=== PATIENT | female | born 1965 | race Caucasian/White ===

== ENCOUNTER 2021-11-16 21:15 | Emergency (ER) | payer MEDICARE ==
[2021-11-16] MEDS ORDERED: Ativan 2 MG/1 ML VIAL ONE (21:44)
[2021-11-16] MEDS: Ativan 2 MG/1 ML VIAL IV ONE (21:45)
--- NOTE | 2021-11-16 21:48 | ERPHSYRPT ---
- History of Present Illness Time Seen by Provider: 11/16/21 21:35 Source: patient, family Exam Limitations: no limitations Patient Subjective Stated Complaint: Patient states she woke up from her sleep without any SOB to use the restroom. She states she suddenly became SOB after having a bowel movement. SOB started approx 6 hours prior to coming into ED. Denies any pain. Triage Nursing Assessment: Patient brought back into ED via wheelchair. She is alert and oriented and answering questions appropriately. Patient is visibly anxious and immediately asked for anxiety medications before getting her out of the w/c and into the bed. Patient was able to transfer self from chair to bed without difficulties. Patient instructed to focus on her breathing and take slow, deep breaths. No cough noted. Lungs in upper lobes clear. Physician History: This is a morbidly obese 56-year-old white female who has a history of hy pertension, degenerative disc disease in her back, left knee arthritis and hypothyroidism who stopped her hydrochlorothiazide on her own and is not on any other medications and has known history of anxiety. She woke up from a nap approximately 6-1/2 hours ago and was not short of breath. However she went into the restroom, had a bowel movement in the short this of breath began approximately 6 hours ago. She denies chest pain. She has no headache. She has not had a fever. She denies cough. She has no abdominal pain. Patient continues to smoke daily. Upon entrance into the emergency department she has a blood pressure 136/92, she is extremely anxious, and her room air oxygen level is running 98 to 100%. Activities at Onset: none Severity of Dyspnea-Max: moderate Severity of Dyspnea-Current: moderate Possible Cause: no prior episodes Modifying Factors: Improves With: nothing Associated Symptoms: denies symptoms Allergies/Adverse Reactions: amoxicillin Allergy (Verified 11/16/21 21:17) aspirin Allergy (Verified 11/16/21 21:18) Influenza Virus Vaccines Allergy (Verified 11/16/21 21:43) oseltamivir [From Tamiflu] Allergy (Verified 11/16/21 21:18) pneumococcal vaccine [From Pneumovax-23] Allergy (Verified 11/16/21 21:44) Home Medications: Duloxetine HCl [Cymbalta] 1 cap PO DAILY 11/16/21 [History] Hydrocodone/Acetaminophen [Hydrocodone-Acetamin 10-325 mg] 1 tab PO Q4-6HPRN PRN 11/16/21 [History] Levothyroxine Sodium 1 tab PO DAILY 11/16/21 [History] Hx Tetanus, Diphtheria Vaccination/Date Given: No Hx Influenza Vaccination/Date Given: No (Allergy) Hx Pneumococcal Vaccination/Date Given: No (Allergy) Immunizations Up to Date: No Travel Risk - International Travel Have you traveled outside of the country in past 3 weeks: No - Coronavirus Screening Are you exhibiting any of the following symptoms?: Yes Symptoms: Shortness of Breath Close contact with a COVID-19 positive Pt in past 14-21 Days: No - Vaccine Status Have you recieved a Covid-19 vaccination: Yes 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 - Vaccination Dates Date of 2cond Vaccination (if applicable): July 2021 - Review of Systems Constitutional: No Symptoms Eyes: No Symptoms Ears, Nose, & Throat: No Symptoms Respiratory: Dyspnea Cardiac: No Symptoms Abdominal/Gastrointestinal: No Symptoms Genitourinary Symptoms: No Symptoms Musculoskeletal: No Symptoms Skin: No Symptoms Neurological: No Symptoms Psychological: No Symptoms Endocrine: No Symptoms Hematologic/Lymphatic: No Symptoms Immunological/Allergic: No Symptoms All Other Systems: Reviewed and Negative - Past Medical History Pertinent Past Medical History: Yes Neurological History: No Pertinent History ENT History: No Pertinent History Cardiac History: Hypertension Respiratory History: No Pertinent History Endocrine Medical History: Hypothyroidism Musculoskeletal History: Other GI Medical History: No Pertinent History History: No Pertinent History Psycho-Social History: Anxiety, Depression Female Reproductive Disorders: No Pertinent History Other Medical History: 2 herniated discs in her back (L3, L4), peripheral neuropathy without DM - Past Surgical History Past Surgical History: Yes Musculoskeletal: Other Other Surgical History: Right leg surgery - Social History Smoking Status: Current every day smoker How long have you smoked: 8 years Exposure to second hand smoke: No Drug Use: none Patient Lives Alone: No - Nursing Vital Signs Nursing Vital Signs: Initial Vital Signs Temperature 97.9 F 11/16/21 21:19 Pulse Rate 85 11/16/21 21:19 Respiratory Rate 26 H 11/16/21 21:19 Blood Pressure 156/92 11/16/21 21:19 O2 Sat by Pulse Oximetry 99 11/16/21 21:19 Pain Scale Pain Intensity 0 - Physical Exam General Appearance: mild distress, alert, anxiety, obese Eye Exam: PERRL/EOMI, eyes nml inspection Ears, Nose, Throat Exam: hearing grossly normal, normal ENT inspection, normal pharynx Neck Exam: normal inspection, non-tender, supple, full range of motion Respiratory Exam: normal breath sounds, lungs clear, airway intact, No chest tenderness, No respiratory distress Cardiovascular/Chest Exam: normal heart sounds, regular rate/rhythm, normal peripheral pulses Abdominal/Gastrointestinal Exam: soft, normal bowel sounds, No tenderness Rectal Exam: not done Extremity Exam: non-tender, normal range of motion, normal inspection, normal capillary refill, no calf tenderness, no pedal edema, pelvis stable, No calf tenderness Neurologic Exam: alert, oriented x 3, cooperative, cafe aide II-XII nml as tested, normal mood/affect, nml cerebellar function, nml station & gait, sensation nml Skin Exam: normal color, warm, dry Lymphatic Exam: No adenopathy SpO2 Interpretation: normal SpO2: 99 O2 Delivery: Room Air - Course Nursing assessment & vital signs reviewed: Yes EKG Interpreted by Me: RATE (81), Sinus Rhythm, NORMAL AXIS, prolonged QT interval, NORMAL QRS, Other (No acute ischemic changes on today's EKG. 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 Care 11/16/21 21:41 Active Clean Catch Urine Specimen STAT Care 11/16/21 21:40 Active EKG-ER Only STAT Care 11/16/21 21:40 Active IV Insertion STAT Care 11/16/21 21:43 Active POCT Glucose Check STAT Care 11/16/21 22:13 Active Pulse Oximetry (ED) STAT Care 11/16/21 21:40 Active CHEST 1 VIEW (PORTABLE) Stat Exams 11/16/21 21:41 Taken CBC W DIFF Stat Lab 11/16/21 21:20 Completed CMP Stat Lab 11/16/21 21:20 Completed D-DIMER QUANTITATIVE Stat Lab 11/16/21 21:20 Completed Lactic Acid Stat Lab 11/16/21 21:55 Completed Lactic Acid Stat Lab 11/17/21 00:01 Completed NT PRO BNP Stat Lab 11/16/21 21:20 Completed POCT GLUCOSE Stat Lab 11/16/21 21:41 Completed T4 (Thyroxine) Stat Lab 11/16/21 21:20 Completed TROPONIN Q3H Lab 11/16/21 21:20 Completed TSH, 3RD Generation Stat Lab 11/16/21 21:20 Completed UA W/RFX CULTURE Stat Lab 11/16/21 22:14 Completed Urine Triage Profile Stat Lab 11/16/21 22:10 Completed Medication Summary Discontinued Medications Generic Name Dose Route Start Last Admin Trade Name Kenroy PRN Reason Stop Dose Admin Sodium Chloride 1,000 mls @ 999 mls/hr 11/16/21 22:21 11/17/21 00:02 Sodium Chloride 0.9% 1000 Ml IV 11/16/21 23:21 Infused .Q1H1M STA Infusion Sodium Chloride Confirm 11/16/21 22:24 Sodium Chloride 0.9% 1000 Ml Administered 11/16/21 22:25 Dose 1,000 mls @ ud .ROUTE .STK-MED ONE Lorazepam 1 mg 11/16/21 21:40 11/16/21 21:45 Lorazepam 2 Mg/1 Ml 2 Mg Vial IV 11/16/21 21:41 1 mg STAT ONE Administration Lorazepam Confirm 11/16/21 21:44 Lorazepam 2 Mg/1 Ml 2 Mg Vial Administered 11/16/21 21:45 Dose 2 mg .ROUTE .STK-MED ONE Lab/Rad Data: Laboratory Result Diagrams 11/16/21 21:20 11/16/21 21:20 Laboratory Results 11/17/21 11/16/21 11/16/21 Range/Units 00:01 22:14 22:10 WBC (4.0-10.5) x10^3/uL RBC (4.1-5.4) x10^6/uL Hgb (12.0-16.0) g/dL Hct (35-47) % MCV (78-100) fL MCH (26-32) pg MCHC (32-36) g/dL RDW (11.5-14.0) % Plt Count (150-450) x10^3/uL MPV (7.5-11.0) fL Gran % (36.0-66.0) % Immature Gran % (Auto) (0.00-0.1) % Nucleat RBC Rel Count (0.00-0.1) % Eos # (Auto) (0-0.5) x10^3/uL Immature Gran # (Auto) (0.00-0.01) x10^3u/L Absolute Lymphs (auto) (1.0-4.6) x10^3/uL Absolute Monos (auto) (0.0-1.3) x10^3/uL Absolute Nucleated RBC (0.00-0.01) x10^3u/L Lymphocytes % (24.0-44.0) % Monocytes % (0.0-12.0) % Eosinophils % (0.00-5.0) % Basophils % (0.0-0.4) % Absolute Granulocytes (1.4-6.9) x10^3/uL Basophils # (0-0.4) x10^3/uL D-Dimer (0.0-0.50) ng/mL Sodium (137-145) mmol/L Potassium (3.5-5.1) mmol/L Chloride (98-107) mmol/L Carbon Dioxide (22-30) mmol/L Anion Gap (5-15) MEQ/L BUN (7-17) mg/dL Creatinine (0.52-1.04) mg/dL Estimated GFR ML/MIN Glucose (74-106) mg/dL POC Glucometer (74 to 106) mg/dL Lactic Acid 1.0 (0.4-2.0) Calcium (8.4-10.2) mg/dL Total Bilirubin (0.2-1.3) mg/dL AST (14-36) U/L ALT (0-35) U/L Alkaline Phosphatase (38-126) U/L Troponin I (0.000-0.034) ng/mL NT-Pro-B Natriuret Pep (0-900) pg/mL Serum Total Protein (6.3-8.2) g/dL Albumin (3.5-5.0) g/dL Thyroxine (T4) (5.53-10.96) ug/dL TSH 3rd Generation (0.47-4.68) mIU/L Urinalys Dipstick Clnc MAIN LAB Urine Color YELLOW (YELLOW) Urine Appearance CLEAR (CLEAR) Urine pH 8.5 (5-6) Ur Specific [place] 1.020 (1.005-1.025) POC Urine Protein Conf NEGATIVE (Negative) Urine Ketones NEGATIVE (NEGATIVE) Urine Nitrite NEGATIVE (NEGATIVE) Urine Bilirubin NEGATIVE (NEGATIVE) Urine Urobilinogen 0.2 (0-1) mg/dL Urine Leukocytes NEGATIVE (NEGATIVE) Urine WBC (Auto) NONE (0-5) /HPF Urine RBC (Auto) 0-2 (0-2) /HPF U Epithel Cells (Auto) RARE (FEW) /HPF Urine Bacteria (Auto) NONE (NEGATIVE) /HPF Urine RBC TRACE-INTACT (0-5) Alvin/ul Ur Culture Indicated? NO Urine Glucose NEGATIVE (NEGATIVE) mg/dL Urine Opiates Level POSITIVE (NEGATIVE) Ur Methadone NEGATIVE (NEGATIVE) Urine Barbiturates NEGATIVE (NEGATIVE) Ur Phencyclidine (PCP) NEGATIVE (NEGATIVE) Urine Amphetamine NEGATIVE (NEGATIVE) U Benzodiazepine Level NEGATIVE (NEGATIVE) Urine Cocaine NEGATIVE (NEGATIVE) Urine Marijuana (THC) NEGATIVE (NEGATIVE) 11/16/21 11/16/21 11/16/21 Range/Units 21:55 21:41 21:20 WBC (4.0-10.5) x10^3/uL RBC (4.1-5.4) x10^6/uL Hgb (12.0-16.0) g/dL Hct (35-47) % MCV (78-100) fL MCH (26-32) pg MCHC (32-36) g/dL RDW (11.5-14.0) % Plt Count (150-450) x10^3/uL MPV (7.5-11.0) fL Gran % (36.0-66.0) % Immature Gran % (Auto) (0.00-0.1) % Nucleat RBC Rel Count (0.00-0.1) % Eos # (Auto) (0-0.5) x10^3/uL Immature Gran # (Auto) (0.00-0.01) x10^3u/L Absolute Lymphs (auto) (1.0-4.6) x10^3/uL Absolute Monos (auto) (0.0-1.3) x10^3/uL Absolute Nucleated RBC (0.00-0.01) x10^3u/L Lymphocytes % (24.0-44.0) % Monocytes % (0.0-12.0) % Eosinophils % (0.00-5.0) % Basophils % (0.0-0.4) % Absolute Granulocytes (1.4-6.9) x10^3/uL Basophils # (0-0.4) x10^3/uL D-Dimer (0.0-0.50) ng/mL Sodium 137 (137-145) mmol/L Potassium 3.9 (3.5-5.1) mmol/L Chloride 100 (98-107) mmol/L Carbon Dioxide 26 (22-30) mmol/L Anion Gap 15.1 H (5-15) MEQ/L BUN 17 (7-17) mg/dL Creatinine 0.86 (0.52-1.04) mg/dL Estimated GFR > 60.0 ML/MIN Glucose 115 H (74-106) mg/dL POC Glucometer 119 H (74 to 106) mg/dL Lactic Acid 3.0 H (0.4-2.0) Calcium 10.0 (8.4-10.2) mg/dL Total Bilirubin 0.80 (0.2-1.3) mg/dL AST 22 (14-36) U/L ALT 15 (0-35) U/L Alkaline Phosphatase 96 (38-126) U/L Troponin I (0.000-0.034) ng/mL NT-Pro-B Natriuret Pep 93.3 (0-900) pg/mL Serum Total Protein 7.9 (6.3-8.2) g/dL Albumin 4.4 (3.5-5.0) g/dL Thyroxine (T4) 11.6 H (5.53-10.96) ug/dL TSH 3rd Generation 3.730 (0.47-4.68) mIU/L Urinalys Dipstick Clnc Urine Color (YELLOW) Urine Appearance (CLEAR) Urine pH (5-6) Ur Specific [place] (1.005-1.025) POC Urine Protein Conf (Negative) Urine Ketones (NEGATIVE) Urine Nitrite (NEGATIVE) Urine Bilirubin (NEGATIVE) Urine Urobilinogen (0-1) mg/dL Urine Leukocytes (NEGATIVE) Urine WBC (Auto) (0-5) /HPF Urine RBC (Auto) (0-2) /HPF U Epithel Cells (Auto) (FEW) /HPF Urine Bacteria (Auto) (NEGATIVE) /HPF Urine RBC (0-5) Alvin/ul Ur Culture Indicated? Urine Glucose (NEGATIVE) mg/dL Urine Opiates Level (NEGATIVE) Ur Methadone (NEGATIVE) Urine Barbiturates (NEGATIVE) Ur Phencyclidine (PCP) (NEGATIVE) Urine Amphetamine (NEGATIVE) U Benzodiazepine Level (NEGATIVE) Urine Cocaine (NEGATIVE) Urine Marijuana (THC) (NEGATIVE) 11/16/21 11/16/21 11/16/21 Range/Units 21:20 21:20 21:20 WBC 12.5 H (4.0-10.5) x10^3/uL RBC 4.61 (4.1-5.4) x10^6/uL Hgb 14.4 (12.0-16.0) g/dL Hct 45.6 (35-47) % MCV 98.9 (78-100) fL MCH 31.2 (26-32) pg MCHC 31.6 L (32-36) g/dL RDW 17.1 H (11.5-14.0) % Plt Count 264 (150-450) x10^3/uL MPV 10.7 (7.5-11.0) fL Gran % 65.0 (36.0-66.0) % Immature Gran % (Auto) 1.8 H (0.00-0.1) % Nucleat RBC Rel Count 0.0 (0.00-0.1) % Eos # (Auto) 0.19 (0-0.5) x10^3/uL Immature Gran # (Auto) 0.22 H (0.00-0.01) x10^3u/L Absolute Lymphs (auto) 3.26 (1.0-4.6) x10^3/uL Absolute Monos (auto) 0.61 (0.0-1.3) x10^3/uL Absolute Nucleated RBC 0.00 (0.00-0.01) x10^3u/L Lymphocytes % 26.1 (24.0-44.0) % Monocytes % 4.9 (0.0-12.0) % Eosinophils % 1.5 (0.00-5.0) % Basophils % 0.7 (0.0-0.4) % Absolute Granulocytes 8.12 H (1.4-6.9) x10^3/uL Basophils # 0.09 (0-0.4) x10^3/uL D-Dimer 0.38 (0.0-0.50) ng/mL Sodium (137-145) mmol/L Potassium (3.5-5.1) mmol/L Chloride (98-107) mmol/L Carbon Dioxide (22-30) mmol/L Anion Gap (5-15) MEQ/L BUN (7-17) mg/dL Creatinine (0.52-1.04) mg/dL Estimated GFR ML/MIN Glucose (74-106) mg/dL POC Glucometer (74 to 106) mg/dL Lactic Acid (0.4-2.0) Calcium (8.4-10.2) mg/dL Total Bilirubin (0.2-1.3) mg/dL AST (14-36) U/L ALT (0-35) U/L Alkaline Phosphatase (38-126) U/L Troponin I < 0.012 (0.000-0.034) ng/mL NT-Pro-B Natriuret Pep (0-900) pg/mL Serum Total Protein (6.3-8.2) g/dL Albumin (3.5-5.0) g/dL Thyroxine (T4) (5.53-10.96) ug/dL TSH 3rd Generation (0.47-4.68) mIU/L Urinalys Dipstick Clnc Urine Color (YELLOW) Urine Appearance (CLEAR) Urine pH (5-6) Ur Specific [place] (1.005-1.025) POC Urine Protein Conf (Negative) Urine Ketones (NEGATIVE) Urine Nitrite (NEGATIVE) Urine Bilirubin (NEGATIVE) Urine Urobilinogen (0-1) mg/dL Urine Leukocytes (NEGATIVE) Urine WBC (Auto) (0-5) /HPF Urine RBC (Auto) (0-2) /HPF U Epithel Cells (Auto) (FEW) /HPF Urine Bacteria (Auto) (NEGATIVE) /HPF Urine RBC (0-5) Alvin/ul Ur Culture Indicated? Urine Glucose (NEGATIVE) mg/dL Urine Opiates Level (NEGATIVE) Ur Methadone (NEGATIVE) Urine Barbiturates (NEGATIVE) Ur Phencyclidine (PCP) (NEGATIVE) Urine Amphetamine (NEGATIVE) U Benzodiazepine Level (NEGATIVE) Urine Cocaine (NEGATIVE) Urine Marijuana (THC) (NEGATIVE) - Progress Progress: improved, re-examined Air Movement: good Progress Note: 11/16/21 23:30 Chest x-ray shows cardiomegaly. I do not appreciate any acute cardiopulmonary process. 11/17/21 00:16 Patient states that she is feeling much better. She desires to go home. We are awaiting the repeat lactic acid level after infusion of 1 L of normal saline. - Departure Departure Disposition: Home Clinical Impression: Shortness of breath, Anxiety, Leukocytosis Condition: Stable Critical Care Time: No Referrals: FINN PEÑA MD [Primary Care Provider] - Follow up/PCP as directed Additional Instructions: Drink plenty of fluids. Follow-up with your primary care doctor today to make arrangements for follow-up appointment for further evaluation and management.
[2021-11-16 21:59] LABS: Absolute Neutrophil Ct (ANC) 8.12 x10^3/uL (1.4-6.9); Basophil (Absolute #) 0.09 x10^3/uL (0-0.4); Eosinophil % 1.5 % (0.00-5.0); Eosinophil (Absolute #) 0.19 x10^3/uL (0-0.5); Hematocrit 45.6 % (35-47); Hemoglobin 14.4 g/dL (12.0-16.0); Lymphocyte (Absolute #) 3.26 x10^3/uL (1.0-4.6); Lymphocytes % 26.1 % (24.0-44.0); Mean Cell Volume 98.9 fL (78-100); Mean Corpuscular Hemoglobin 31.2 pg (26-32); Mean Corpuscular Hgb Concent. 31.6 g/dL (32-36); Mean Platelet Volume 10.7 fL (7.5-11.0); Monocyte (Absolute #) 0.61 x10^3/uL (0.0-1.3); Monocytes % 4.9 % (0.0-12.0); Platelet Count 264 x10^3/uL (150-450); Red Blood Count 4.61 x10^6/uL (4.1-5.4); Red Cell Distribution Width 17.1 % (11.5-14.0); White Blood Count 12.5 x10^3/uL (4.0-10.5)
[2021-11-16] MEDS ORDERED: Sodium Chloride 0.9% 1000 ML 1,000 ML ONE (22:24)
[2021-11-16 22:25] LABS: Appearance CLEAR (CLEAR); Bilirubin NEGATIVE (NEGATIVE); Dipstick done @ ? MAIN LAB; Glucose NEGATIVE (NEGATIVE); Ketones NEGATIVE (NEGATIVE); Nitrite NEGATIVE (NEGATIVE); Ph 8.5 (5-6); Protein,Urine Dip NEGATIVE (Negative); RBC TRACE-INTACT Ery/ul (0-5); Urobilinogen 0.2 mg/dL (0-1)
[2021-11-16] MEDS: Sodium Chloride 0.9% 1000 ML 1,000 ML IV STA (22:25)
[2021-11-16 22:29] LABS: Epithelial Cells RARE /HPF (FEW); RBC 0-2 /HPF (0-2); Urine Cultured Indicated? NO
[2021-11-16 22:42] LABS: Amphetamine,Urine NEGATIVE (NEGATIVE); Barbiturate,Urine NEGATIVE (NEGATIVE); Benzodiazepine,Urine NEGATIVE (NEGATIVE); Cocaine,Urine NEGATIVE (NEGATIVE); Methadone,Urine NEGATIVE (NEGATIVE); Opiate,Urine POSITIVE (NEGATIVE); PCP,Urine NEGATIVE (NEGATIVE); THC,Urine NEGATIVE (NEGATIVE)
[2021-11-16 22:43] LABS: ALBUMIN 4.4 g/dL (3.5-5.0); ALKALINE PHOSPHATASE 96 U/L (38-126); ANION GAP 15.1 MEQ/L (5-15); BLOOD UREA NITROGEN 17 mg/dL (7-17); CHLORIDE 100 mmol/L (98-107); Carbon Dioxide 26 mmol/L (22-30); Creatinine 1 0.86 mg/dL (0.52-1.04); EST GLOMERULAR FILTRATION RATE > 60.0 ML/MIN; Glucose 115 mg/dL (74-106); NT PRO BNP 93.3 pg/mL (0-900); Potassium 3.9 mmol/L (3.5-5.1); SGOT/AST 22 U/L (14-36); SGPT/ALT 15 U/L (0-35); SODIUM 137 mmol/L (137-145); T4 (Thyroxine) 11.6 ug/dL (5.53-10.96); Total Protein 7.9 g/dL (6.3-8.2)
[2021-11-17 00:41] VITALS: BP 142/90; PULSE 74; O2SAT 97
--- NOTE | 2021-11-17 08:56 | XRAY ---
Indication: Short of breath. Comparison: None Portable apical lordotic chest is clear. Heart borderline enlarged. Bony thorax intact. Incidental mild focal eventration right hemidiaphragm.
== END 2021-11-17 00:37 | disposition home or self-care (01) ==
LOC: ED 21:15
DX: R06.02 Shortness of breath (principal); F41.9 Anxiety disorder, unspecified; D72.829 Elevated white blood cell count, unspecified; I10 Essential (primary) hypertension; Z72.0 Tobacco use; Z79.891 Long term (current) use of opiate analgesic; Z79.899 Other long term (current) drug therapy
CPT/HCPCS: 36000; 36415; 71045; 80053; 80307; 81015; 82947; 83605; 83880; 84436; 84443; 84484; 85025; 85379; 93005; 93041; 94760; 96374; 99284; J2060